=== PATIENT | female | born 1980 | race Caucasian/White ===

== ENCOUNTER 2023-02-08 10:17 | Emergency (ER) | payer SELFPAY ==
--- OUTSIDE RECORDS SUMMARY | 2023-02-08 10:21 | XMS REPORT | Continuity of Care Document ---
:1980 Author Organization [facility] t Address [address] [place] [address] [place] [id number] Care Team Providers Name Role Phone Asked, No Pcp Primary Care Physician Unavailable KARI WHITE Attending Clinician Unavailable KARI WHITE Admitting Clinician Unavailable Payers Payer Name Policy Type Policy Number Effective Date Expiration Date S janice [id number] Problems Condition Condition Condition Status Onset Resolution Last Treating Co mments Source Name Details Category Date Date Treatment Clinician Date Chest pain Chest pain Disease Active 2018-0 [facility]: [facility] 00 l Allergies, Adverse Reactions, Alerts This patient has no known allergies or adverse reactions. Family History Family Member Diagnosis Comments Start Date Stop Date Source Natural brother Heart disease Method [facility] Natural father Cancer [facility] Social History Social Habit Start Date Stop Date Quantity Comments Source Gender identity [facility] Sexual orientation Method [facility] History of tobacco Smokes tobacco [facility] use daily Hospital History of Social 2019-01-28 2019-01-28 [facility] function 00:00:00 00:00:00 Hospital Cigarettes smoked 2019-01-18 [facility]:00 Hospita l day) - Reported Tobacco use and 2019-01-18 2019-01-18 Smokeless [employer] exposure 00:00:00 00:00:00 tobacco non-user Hospital Alcohol intake 2019-01-18 2019-01-18 Current [employer] 00:00:00 00:00:00 non-drinker of Hospital alcohol (finding) Sex Assigned At [birth year] [facility] 00:00:00 00:00:00 Hospital Smoking Status Start Date Stop Date Source Smokes tobacco daily 2019-01-18 00:00:00 [facility] Medications Ordered Filled Start Stop Current Ordering Indication Dosage Frequency Signature Comments Components Source Medication Medication Date Date Medication? Clinician (SIG) Name Name famotidine 2019-0 Yes 20mg Q.5D Take 20 mg M ethodi (PEPCID) 20 8-[address] MG tablet 08:22: (two) Hospita 43 times a l day. Procedures This patient has no known procedures. Plan of Care Planned Activity Planned Date Details Comments Source Future Scheduled 2023-02-02 BREAST CANCER [facility] Test 06:11:07 SCREENING [code = BREAST CANCER SCREENING] Future Scheduled 2023-02-02 INFLUENZA VACCINE [facility] Test 06:11:07 (#1) [code = INFLUENZA VACCINE (#1)] Future Scheduled 2023-02-02 COVID-19 VACCINE [facility] Test 06:11:07 (#1) [code = COVID-19 VACCINE (#1)] Future Scheduled 2023-02-02 Screening for [facility] Test 06:11:07 malignant neoplasm of cervix (procedure) [code = [id number]] Encounters Start End Encounter Admission Attending Care Care Encounter Source Date/Time Date/Time Type Type Clinicians Facility Department ID 2010-10-24 2010-10-24 Emergency 1 REECE WHITE EMD [id number] 12:35:00 14:10:00 KARI aaron (DANIA/JHONNY Chavira/) Results This patient has no known results.
[2023-02-08] MEDS ORDERED: MORPHINE 4 MG/ML SYR ONE (10:51)
[2023-02-08] MEDS ORDERED: ONDANSETRON 4 MG/2 ML VIAL ONE (10:51)
[2023-02-08 10:54] LABS: Absolute Lymphocytes (CBC) 2.3 K/uL (0.7-4.9); Hematocrit 52.8 % (36.0-45.0); Lymphocytes % 17.9 % (15.3-44.8); MCV 88.4 fL (80-100); MPV 8.2 fL (7.6-11.3); Platelets 316 thou/uL (152-406); RBC Red Blood Cell Count 5.98 M/uL (3.86-4.86)
[2023-02-08 11:05] LABS: Albumin 3.4 g/dL (3.4-5.0); Bilirubin Total 0.5 mg/dL (0.2-1.0); Protein, Total 8.2 g/dL (6.4-8.2)
--- NOTE | 2023-02-08 12:06 | RAD REPORT ---
EXAM DESCRIPTION: CT - Abdomen Pelvis W Contrast - 02/08/2023 11:38 am CLINICAL HISTORY: acute worsening of hernia;Abd pain;Abdominal distention COMPARISON: No comparisons TECHNIQUE: Thin cut axial CT imaging of the abdomen and pelvis was performed following intravenous a dministration of 100 mL Isovue 300. Multiplanar reformats were generated and reviewed. All CT scans are performed using dose optimization technique as appropriate and may include automated exposure control or mA/KV adjustment according to patient size. FINDINGS: No suspicious findings in the lung bases. The liver, spleen, and pancreas show no suspicious findings. Gallbladder and biliary tree are also wi thout suspicious finding. Symmetric renal function is seen with no hydronephrosis or suspicious renal mass. No dilated bowel loops or bowel wall thickening. No free air, free fluid or inflammatory stranding. L arge infraumbilical hernia containing nondistended small and large bowel. Fluid filling along most of the large bowel, sparing the sigmoid, nonspecific. No suspicious mass or bulky lymphadenopathy. The urinary bladder is without significant finding. No suspicious bony findings. IMPRESSION: Large infraumbilical hernia containing nondistended small and large bowel. Fluid filling along most of the large bowel, nonspecific, and could relate to diarrheal state. No other acute intra-abdominal process.
--- NOTE | 2023-02-08 12:24 | ER ---
Nurse's Notes [facility] Name: Mecca Murray Age: 43 yrs Sex: Female : 1980 Arrival Date: 02/08/2023 Time: 10:17 Bed 4 Private MD: Diagnosis: Ventral hernia without obstruction or gangrene Presentation: 02/08 10:30 Chief complaint: Patient states: Was laughing when she suddenly felt pain to her nj1 abdomen, has a hernia which she states is now discolored and bigger in size. Vomiting and diarrhea along with the pain. 10:30 Coronavirus screen: Vaccine status: Patient reports being unvaccinated. Ebola Screen: nj1 Patient denies travel to an Ebola-affected area in the 21 days before illness onset. Initial Sepsis Screen: Does the patient meet any 2 criteria? No. Patient's initial sepsis screen is negative. Does the patient have a suspected source of infection? No. Patient's initial sepsis screen is negative. Risk Assessment: Do you want to hurt yourself or someone else? Patient reports no desire to harm self or others. Onset of symptoms was February 08, 2023 at 10:00. 10:30 Method Of Arrival: Ambulatory [facility] 10:30 Acuity: LUBA 3 nj1 10:48 Acuity: LUBA 3 iw 10:49 Chief complaint: Patient states: she was laughing and her abdominal hernia protruded iw out about five times it regular size, +n/v, discoloration to abd. Risk Assessment: Do you want to hurt yourself or someone else? Patient reports no desire to harm self or others. 10:49 Method Of Arrival: Ambulatory iw 10:50 Coronavirus screen: At this time, the client does not indicate any symptoms associated iw with coronavirus-19. Ebola Screen: Patient negative for fever greater than or equal to 101.5 degrees Fahrenheit, and additional compatible Ebola Virus Disease symptoms Patient denies exposure to infectious person. Patient denies travel to an Ebola-affected area in the 21 days before illness onset. No symptoms or risks identified at this time. Initial Sepsis Screen: Does the patient meet any 2 criteria? No. Patient's initial sepsis screen is negative. Does the patient have a suspected source of infection? No. Patient's initial sepsis screen is negative. Onset of symptoms was February 08, 2023. Historical: - Allergies: 10:50 No Known Allergies; nj1 - PMHx: 10:50 Asthma; Hernia; [facility] - PSHx: 10:50 Ligation of fallopian tube; nj1 - Immunization history:: Client reports having NOT received the Covid vaccine. - Social history:: Smoking status: Patient reports the use of cigarette tobacco products, smokes two packs cigarettes per day. - Family history:: not pertinent. - Hospitalizations: : No recent hospitalization is reported. Screenin:43 [facility] ED Fall Risk Assessment (Adult) Score/Fall Risk Level 0 - 2 = Low Risk. Abuse iw screen: Denies threats or abuse. Nutritional screening: No deficits noted. Tuberculosis screening: No symptoms or risk factors identified. Assessment: 10:42 General: Appears in no apparent distress. Behavior is calm, cooperative. Pain: iw Complains of pain in abdomen. Neuro: Level of Consciousness is awake, alert, obeys commands. Respiratory: Respiratory effort is even, unlabored, Respiratory pattern is regular. GI: Abdomen is distended, large abd hernia noted Reports nausea, vomiting. Derm: Skin is intact. Vital Signs: 10:30 BP 155 / 103; Pulse 89; Resp 18; Temp 98.7(O); Pulse Ox 96% on R/A; Weight 113.4 kg; nj1 Height 5 ft. 9 in. ; Pain 5/10; 10:50 BP 158 / 102; iw 12:28 BP 115 / 88; Pulse 77; Resp 18; Pulse Ox 98% on R/A; me1 10:30 Body Mass Index 36.92 (113.40 kg, 175.26 cm) [facility] 10:30 Pain Scale: Adult [facility] ED Course: 10:20 Patient arrived in ED. mg5 10:21 Franki Aldana MD is Attending Physician. rn 10:42 Michelle Ramachandran, CHARMAINE is Primary Nurse. iw 10:42 Initial lab(s) drawn, by nc, sent to lab. Inserted saline lock: 20 gauge in right iw antecubital area, using aseptic technique. Blood collected. 10:43 Patient has correct armband on for positive identification. Provided Education on: IV iw start . 10:48 Triage completed. iw 10:51 Arm band placed on. [facility] 11:40 CT Abd/Pelvis - IV Contrast Only In Process Unspecified. EDMS 12:40 No provider procedures requiring assistance completed. IV discontinued, intact, me1 bleeding controlled, No redness/swelling at site. Pressure dressing applied. Administered Medications: 11:53 Drug: Ondansetron IVP 4 mg Route: IVP; Site: right antecubital; iw 12:10 Follow up: Response: No adverse reaction iw 11:53 Drug: morphine IVP or IV 4 mg Route: IVP; Infused Over: 4 mins; Site: right antecubital;iw 12:05 Follow up: Response: No adverse reaction; Pain is decreased iw Medication: 10:43 VIS not applicable for this client. iw Outcome: 12:23 Discharge ordered by . rn 12:40 Discharged to home ambulatory, with significant other. me1 12:40 Condition: stable 12:40 Discharge instructions given to patient, significant other, Instructed on discharge instructions, follow up and referral plans. Demonstrated understanding of instructions, follow-up care, Prescriptions given X 1. 12:41 Patient left the ED. me1 Signatures: Dispatcher [employer] Michelle Terry RN RN Franki Aldana MD MD rn Jaco, Norma, RN RN me1 Leydi Hurst RN RN me1 Trinidad Boo mg5
--- NOTE | 2023-02-08 12:24 | EDPHYS ---
Physician Documentation [facility] Name: Mecca Murray Age: 43 yrs Sex: Female : 1980 Arrival Date: 02/08/2023 Time: 10:17 Bed 4 Private MD: ED Physician Franki Aldana HPI: 02/08 10:39 This 43 yrs old Female presents to ER via Unassigned with complaints of rn Nausea/Vomiting/Diarrhea, Abdominal Pain. 10:39 The patient presents to the emergency department with abdominal pain. Onset: The rn symptoms/episode began/occurred this morning. Possible causes: unknown. The symptoms are aggravated by movement, pressure, The symptoms are alleviated by nothing. Severity of symptoms: At their worst the symptoms were moderate in the emergency department the symptoms are unchanged. The patient has not experienced similar symptoms in the past. The patient has not recently seen a physician. Patient reports was laughing and had acute change in abdominal hernia, increased in size by about 5 times and pain with nausea and vomiting along with skin discoloration.. Historical: - Allergies: 10:50 No Known Allergies; nj1 - PMHx: 10:50 Asthma; Hernia; nj1 - PSHx: 10:50 Ligation of fallopian tube; nj1 - Immunization history:: Client reports having NOT received the Covid vaccine. - Social history:: Smoking status: Patient reports the use of cigarette tobacco products, smokes two packs cigarettes per day. - Family history:: not pertinent. - Hospitalizations: : No recent hospitalization is reported. ROS: 10:39 Constitutional: Negative for fever, chills, and weight loss, Cardiovascular: Negative rn for chest pain, palpitations, and edema, Respiratory: Negative for shortness of breath, cough, wheezing, and pleuritic chest pain, Abdomen/GI: Positive for abdominal pain and vomiting Back: Negative for injury and pain, MS/Extremity: Negative for injury and deformity, Skin: Negative for injury, rash, and discoloration, Neuro: Negative for headache, weakness, numbness, tingling, and seizure. Exam: 10:39 Constitutional: This is a well developed, well nourished patient who is awake, alert, rn appears uncomfortable holding abdomen Head/Face: Normocephalic, atraumatic. Cardiovascular: Regular rate and rhythm. No pulse deficits. Respiratory: No increased work of breathing, no retractions or nasal flaring. Abdomen/GI: Soft, large ventral/periumbilical hernia, size of watermelon with mottled and lacy/reticular discoloration of abdominal wall. No peritoneal signs Skin: Warm, dry MS/ Extremity: Pulses equal, no cyanosis Neuro: Awake and alert, GCS 15 Vital Signs: 10:30 BP 155 / 103; Pulse 89; Resp 18; Temp 98.7(O); Pulse Ox 96% on R/A; Weight 113.4 kg; nj1 Height 5 ft. 9 in. ; Pain 5/10; 10:50 BP 158 / 102; iw 12:28 BP 115 / 88; Pulse 77; Resp 18; Pulse Ox 98% on R/A; me1 10:30 Body Mass Index 36.92 (113.40 kg, 175.26 cm) nj 10:30 Pain Scale: Adult nj Procedures: 12:21 Reduction: of the abdomen, infraumbilical hernia, using supine and constant pressure rn after morphine, Immobilized with Patient tolerated well. Mottled skin discoloration and tenderness resolved, hernia successfully reduced. . MDM: 10:22 Patient medically screened. rn 12:21 Differential diagnosis: Abdominal hernia, incarceration, blockage. Data reviewed: vital rn signs, nurses notes, lab test result(s), radiologic studies, and as a result, I will discharge patient. Counseling: I had a detailed discussion with the patient and/or guardian regarding the historical points, exam findings, and any diagnostic results supporting the discharge/admit diagnosis, lab results, radiology results, the need for outpatient follow up, to return to the emergency department if symptoms worsen or persist or if there are any questions or concerns that arise at home. Response to treatment: the patient's symptoms have markedly improved after treatment, and as a result, I will discharge patient. Special discussion: I discussed with the patient/guardian in detail that at this point there is no indication for admission to the hospital. It is understood, however, that if the symptoms persist or worsen the patient needs to return immediately for re-evaluation. ED course: No acute findings on CAT scan that indicate emergent surgery or need for admission. Hernia successfully reduced by me after morphine and patient feels much better with resolution of skin discoloration and tenderness. Patient states her kids are at home with illness as well and could explain vomiting and diarrheal state. Patient states has enough Zofran at home and declines new prescription. Return precautions given and understood. We will follow-up with Dr. Shay for elective hernia repair. 02/08 10:35 Order name: CBC with Diff; Complete Time: 11:14 rn 02/08 10:35 Order name: CMP; Complete Time: 11:14 rn 02/08 10:35 Order name: CT Abd/Pelvis - IV Contrast Only; Complete Time: 12:06 rn 02/08 10:35 Order name: IV Saline Lock; Complete Time: 10:42 rn 02/08 10:35 Order name: Labs collected and sent; Complete Time: 10:42 rn 02/08 10:35 Order name: NPO; Complete Time: 10:41 rn Administered Medications: 11:53 Drug: Ondansetron IVP 4 mg Route: IVP; Site: right antecubital; iw 12:10 Follow up: Response: No adverse reaction iw 11:53 Drug: morphine IVP or IV 4 mg Route: IVP; Infused Over: 4 mins; Site: right antecubital;iw 12:05 Follow up: Response: No adverse reaction; Pain is decreased iw Disposition Summary: 02/08/23 12:23 Discharge Ordered Location: Home rn Problem: new rn Symptoms: have improved rn Condition: Stable rn Diagnosis - Ventral hernia without obstruction or gangrene rn Followup: rn - With: Private Physician - When: As needed - Reason: Recheck today's complaints, Re-evaluation by your physician Discharge Instructions: - Discharge Summary Sheet rn - Hernia, Adult rn - Ventral Hernia rn Forms: - Medication Reconciliation Form rn - Thank You Letter rn - Antibiotic analysis intern - Prescription Opioid Use rn - Patient Portal Instructions rn - Leadership Thank You Letter rn Signatures: Dispatcher [employer] Michelle Terry RN RN iw Franki Aldana MD MD rn Jaco, Norma, RN RN nj1
[2023-02-08 12:47] VITALS: TEMP 98.7
[2023-02-08 12:49] VITALS: BP 115/88; O2SAT 98
== END 2023-02-08 12:41 | disposition home or self-care (01) ==
LOC: ER 10:17
DX: K43.9 Ventral hernia without obstruction or gangrene (principal); R11.2 Nausea with vomiting, unspecified
CPT/HCPCS: 36415; 74177; 80053; 85025; 96374; 96375; 99284; J2405; Q9967